=== PATIENT | female | born 2000 | race African-American/Black ===

== ENCOUNTER 2019-01-16 21:53 | Emergency (ER) | payer MEDICAID ==
[2019-01-16 22:18] LABS: BASOPHILS 0.3 % (0-2); EOSINOPHILS 2.5 % (0-7); HEMATOCRIT 35.8 % (36.0-48.0); HEMOGLOBIN 11.2 g/dL (12-16); IMMATURE GRANULOCYTES 0.2 % (0-5); LYMPHOCYTES 27.9 % (15-50); MCHC 31.3 g/dL (31.0-37.0); MCV 70.3 fL (80.0-100.0); MONOCYTES 16.3 % (2-11); NEUTROPHILS 52.8 % (40-80); PLATELET COUNT 348 10x3/uL (130-400); RBC 5.09 10x6/uL (4.00-5.40); RDW 14.5 % (11.5-14.5)
[2019-01-16 22:29] LABS: HCG SERUM NEGATIVE (NEGATIVE)
[2019-01-16 22:32] LABS: ALBUMIN 3.4 g/dL (3.4-5.0); ALKALINE PHOSPHATASE 59 U/L (46-116); ALT (SGPT) 15 U/L (10-68); BILIRUBIN - TOTAL 0.32 mg/dL (0.2-1.3); CALC OSMOLALITY 275 mosm/kg (275-300); CALCIUM 8.8 mg/dL (8.5-10.1); CARBON DIOXIDE 28.3 mmol/L (21.0-32.0); CHLORIDE - SERUM 104 mmol/L (98-107); CREATININE - SERUM 0.7 mg/dL (0.6-1.3); GLUCOSE 88 mg/dL (74-106); POTASSIUM - SERUM 3.9 mmol/L (3.5-5.1); PROTEIN - SERUM 7.6 g/dL (6.4-8.2); SODIUM 140 mmol/L (136-145); UREA NITROGEN 6 mg/dL (7-18); eGFR NON AFRICAN AMERICAN > 90 mL/min (90-120)
[2019-01-16 22:46] LABS: APPEARANCE CLOUDY (CLEAR); COLOR RED (YELLOW); SPECIFIC GRAVITY 1.015 (1.005-1.020)
[2019-01-16 22:53] LABS: BACTERIA FEW /hpf (NONE SEEN); EPITHELIAL CELLS 0-5 /hpf (0-5); RED CELLS - URINE >50 /hpf (0-5)
[2019-01-17 00:35] VITALS: BP 120/72
== END 2019-01-17 00:35 | disposition home or self-care (01) ==
LOC: D.ER 21:53
PROVIDERS: Family Medicine
DX: N93.9 Abnormal uterine and vaginal bleeding, unspecified (principal)

== ENCOUNTER 2019-02-27 13:42 | Emergency (ER) | payer MEDICAID ==
[~2019-02-27] VITALS: Ht 160 cm; Wt 90.7 kg
[2019-02-27 13:43] VITALS: BP 132/76; Ht 160 cm; Wt 90.7 kg
[2019-02-27 14:14] LABS: HCG SERUM NEGATIVE (NEGATIVE)
[2019-02-27 14:19] LABS: ALBUMIN 3.3 g/dL (3.4-5.0); ALKALINE PHOSPHATASE 67 U/L (46-116); ALT (SGPT) 14 U/L (10-68); BILIRUBIN - TOTAL 0.26 mg/dL (0.2-1.3); CALC OSMOLALITY 276 mosm/kg (275-300); CALCIUM 8.5 mg/dL (8.5-10.1); CARBON DIOXIDE 29.2 mmol/L (21.0-32.0); CHLORIDE - SERUM 104 mmol/L (98-107); CREATININE - SERUM 0.9 mg/dL (0.6-1.3); GLUCOSE 96 mg/dL (74-106); POTASSIUM - SERUM 3.6 mmol/L (3.5-5.1); PROTEIN - SERUM 7.7 g/dL (6.4-8.2); SODIUM 139 mmol/L (136-145); UREA NITROGEN 9 mg/dL (7-18); eGFR NON AFRICAN AMERICAN 85 mL/min (90-120)
[2019-02-27 14:23] LABS: AMYLASE - SERUM 42 U/L (25-115); LIPASE 109 U/L (73-393)
[2019-02-27 14:29] LABS: TROPONIN-I < 0.017 ng/mL (0.000-0.060)
[2019-02-27 14:40] LABS: BASOPHILS 0.4 % (0-2); EOSINOPHILS 2.8 % (0-7); HEMATOCRIT 35.1 % (36.0-48.0); HEMOGLOBIN 10.9 g/dL (12-16); IMMATURE GRANULOCYTES 0.2 % (0-5); LYMPHOCYTES 27.2 % (15-50); MCH 21.8 pg (26.0-34.0); MCHC 31.1 g/dL (31.0-37.0); MCV 70.2 fL (80.0-100.0); MEAN PLATELET VOLUME 10.4 fL (7.4-10.4); MONOCYTES 12.7 % (2-11); NEUTROPHILS 56.7 % (40-80); PLATELET COUNT 322 10x3/uL (130-400); WBC 5.7 10x3/uL (4.8-10.8)
[2019-02-27 14:42] LABS: APPEARANCE CLEAR (CLEAR); BILIRUBIN NEGATIVE (NEGATIVE); COLOR YELLOW (YELLOW); GLUCOSE NEGATIVE (NEGATIVE); KETONE NEGATIVE (NEGATIVE); NITRITE NEGATIVE (NEGATIVE); PROTEIN NEGATIVE (NEGATIVE)
[2019-02-27] MEDS ORDERED: NAPROSYN500 MG PO (17:37)
[2019-02-27] MEDS ORDERED: ULTRAM50 MG PO (17:37)
== END 2019-02-27 19:20 | disposition home or self-care (01) ==
LOC: D.ER 13:42
PROVIDERS: Family Medicine
DX: M54.5 Low back pain (principal)